=== PATIENT | female | born 1945 | race Caucasian/White ===

== ENCOUNTER 2025-06-02 11:16 | Emergency (ER) | payer MEDICARE, OTHER ==
[~2025-06-02] VITALS: Ht 170.2 cm; Wt 86.2 kg
[2025-06-02] MEDS ORDERED: NS 1,000 ML IV SCH ×2 (11:30→17:25)
[2025-06-02 11:57] LABS: BASOPHILS ABSOLUTE AUTO 0.03 K/mm3 (0.00-0.23); BASOPHILS PERCENT AUTO 0 % (0-2); EOSINOPHILS ABSOLUTE AUTO 0.02 K/mm3 (0.00-0.68); EOSINOPHILS PERCENT AUTO 0 % (0-6); Hematocrit 36.8 % (33.0-51.0); Hemoglobin 11.4 g/dL (11.5-16.0); IMMATURE GRAN ABSOLUTE AUTO 0.19 K/mm3 (0.00-0.10); IMMATURE GRAN PERCENT AUTO 2 % (0-1); LYMPHOCYTES ABSOLUTE AUTO 0.62 K/mm3 (0.84-5.20); LYMPHOCYTES PERCENT AUTO 6 % (21-46); MONOCYTES ABSOLUTE AUTO 0.42 K/mm3 (0.16-1.47); MONOCYTES PERCENT AUTO 4 % (4-13); Mean Corpuscular HGB Conc 31.0 g/dL (31.5-36.5); Mean Corpuscular Volume 91 fL (80-100); NEUTROPHILS ABSOLUTE AUTO 8.81 K/mm3 (1.96-9.15); NEUTROPHILS PERCENT AUTO 87 % (41-73); NRBC ABSOLUTE 0.10 K/mm3 (0.00-0.02); NRBC Auto 1.0 /100 WBC (0.0-0.2); Platelet Count 71 K/mm3 (150-400); RDW Coefficient Variation 18.8 % (11.7-14.2); RDW Standard Deviation 63.7 fL (35.1-46.3); pH Blood Venous 7.04 (7.34-7.37)
[2025-06-02 12:20] LABS: Alanine Aminotransfer (ALT/SGP 145.0 U/L (12-78); Albumin, Blood 3.7 g/dL (3.4-5.0); Albumin/Globulin Ratio 1.1 (0.8-1.8); Anion Gap 10.0 mmol/L (3-11); Aspartate Aminotrans (AST/SGOT 91.0 U/L (12-37); Bilirubin, Total 0.4 mg/dL (0.1-1.0); Blood Urea Nitrogen 88.0 mg/dL (8-24); CO2, Blood 22.0 mmol/L (21-32); Calcium, Blood 9.6 mg/dL (8.5-10.1); Chloride, Blood 106.0 mmol/L (98-108); Creatinine, Blood 1.78 mg/dL (0.40-1.00); Globulin, Blood 3.4 g/dL (2.2-4.0); Glucose, Blood 165.0 mg/dL (70-99); Potassium, Blood 5.2 mmol/L (3.5-5.5); Sodium, Blood 133.0 mmol/L (136-145); Total Protein, Blood 7.1 g/dL (6.4-8.2)
[2025-06-02 13:40] LABS: Prothrombin Time Results 13.5 Sec (9.7-11.5)
[2025-06-02] MEDS ORDERED: Piperacillin/Tazobactam Sod 3.375 GM in NS 100 ML IV ONE (13:55)
[2025-06-02 14:09] LABS: pH Blood Arterial 7.23 (7.35-7.45)
[2025-06-02] MEDS ORDERED: FLU VACC TS2025(65UP)/MF59C/PF 45 MCG/0.5 ML SYRINGE IM SCH (14:15)
[2025-06-02 14:55] LABS: Source, Urine Foley catheter
[2025-06-02 15:04] LABS: Bilirubin, Urine Neg (Neg); Color, Urine Yellow (P-Yellow); Glucose Qualitative, Urine 4+ (Neg); Ketones, Urine Neg (Neg); Leukocyte Esterase, Urine Neg (Neg); Protein, Urine 4+ (Neg); Specific Gravity, Urine 1.020 (1.003-1.022); Urobilinogen, Urine NORM (Normal)
[2025-06-02] MEDS ORDERED: FentaNYL Citrate 50 MCG/ML 2 ML Injection IV ONE (17:30)
[2025-06-02] MEDS ORDERED: Phenylephrine HCl 100 MCG/ML-NS 10MLSYR (1MG/10ML) IV ONE (19:23)
[2025-06-02] MEDS ORDERED: Ketamine HCl 100 MG / ML 5ML Vial IM ONE (19:23)
[2025-06-02] MEDS ORDERED: Rocuronium Bromide 10 MG/ML 5ML Injection IV ONE (19:23)
== END 2025-06-02 19:13 | disposition home or self-care (01) ==
LOC: ER 11:16
PROVIDERS: Emergency Medicine
DX: I46.9 Cardiac arrest, cause unspecified (principal); S13.171A Dislocation of C6/C7 cervical vertebrae, initial encounter; W19.XXXA Unspecified fall, initial encounter; D69.6 Thrombocytopenia, unspecified
CPT/HCPCS: 31500; 36415; 36600; 51702; 70450; 71045; 71260; 72125; 80053; 81001; 82803; 83605; 83880; 84484; 85025; 85610; 85730; 86850; 86900; 86901; 87040; 87077; 87086; 93005; 93010; 93306; 94002; 96365-59; 96366-59; 99291-25; 99292; C1751; J2371; J2543; J2704; J3010; J7030; J7050; L0160; Q9967